=== PATIENT | female | born 1985 | race Two or more races ===

== ENCOUNTER 2024-02-06 22:56 | Emergency (ER) | payer MEDICAID, OTHER ==
[~2024-02-06] VITALS: Ht 170.2 cm; Wt 70.3 kg
[2024-02-06 23:15] VITALS: BP 108/72; PULSE 82; RESP 14; O2SAT 100
== END 2024-02-07 00:48 | disposition left against medical advice (07) ==
LOC: ER 22:56
DX: R44.0 Auditory hallucinations (principal)